=== PATIENT | female | born 1965 | race American Indian/Alaskan Native ===

== ENCOUNTER 2017-11-02 08:15 | Outpatient (CLI) | payer BC ==
--- NOTE | 2017-11-02 15:03 | Ultrasound Report ---
ULTRASOUND ABDOMEN LIMITED: TECHNIQUE: Transabdominal ultrasound with color Doppler interrogation. HISTORY: Chronic right upper quadrant pain. COMPARISON: none. FINDINGS: LIVER: Normal. BILIARY SYSTEM: There is a small amount of non-shadowing debris in the gallbladder consistent with sludge. No evidence for shadowing gallstones. The gallbladder is normal size, contour and wall thickness. No pericholecystic fluid. PANCREAS: Normal. RIGHT KIDNEY: Normal. PROXIMAL AORTA: Normal. ASCITES: None. IMPRESSION: Small amount of sludge in the gallbladder. No evidence for acute cholecystitis.
== END 2017-11-02 08:16 | disposition home or self-care (01) ==
LOC: US 08:15
PROVIDERS: ATTEND Internal Medicine
DX: R10.11 Right upper quadrant pain (principal); Z88.0 Allergy status to penicillin
CPT/HCPCS: 76705

== ENCOUNTER 2017-11-03 11:16 | Outpatient (CLI) | payer BC ==
--- NOTE | 2017-11-03 15:33 | Mammography Report ---
Screening mammogram: Routine imaging demonstrates an intermediate density fibroglandular pattern with a generally symmetric distribution. There is an asymmetry which is partially circumscribed in the upper outer right breast. The breast pattern bilaterally otherwise contains a couple small nodules but no significant findings. No calcifications. CAD used. Impression: Right asymmetry. Recommendation: Prior exams are been requested before final recommendation. BI-RADS CATEGORY: 0 = Needs additional imaging evaluation ACR BI-RADS MAMMOGRAPHIC CODES: 0 = Needs additional imaging evaluation; 1 = Negative; 2 = Benign; 3 = Probably benign; 4 = Suspicious; 5 = Malignant; 6 = Known biopsy-proven malignancy COMMENT: 1. Dense breast tissue, i.e., adenosis, fibrocystic changes, etc., may obscure an underlying neoplasm. 2. Approximately 10% of cancers are not detected with mammography. 3. A negative mammography report should not delay biopsy if a clinically suspicious mass is present.
== END 2017-11-03 11:17 | disposition home or self-care (01) ==
LOC: SPVWC 11:16
PROVIDERS: ATTEND Internal Medicine
DX: Z12.31 Encounter for screening mammogram for malignant neoplasm of breast (principal); Z88.0 Allergy status to penicillin
CPT/HCPCS: 77067

== ENCOUNTER 2017-12-01 08:48 | Outpatient (CLI) | payer BC ==
[2017-12-01] MEDS ORDERED: KINEVAC IV ONE ×2 (10:01→10:07)
--- NOTE | 2017-12-01 12:26 | Nuclear Medicine Report ---
HEPATOBILIARY SCAN: History: Right upper quadrant pain, gallbladder sludge. Following the injection of the radionuclide, serial scanning was obtained over the right upper quadrant. Initial imaging of the liver demonstrates a relatively normal activity pattern. Progressive concentration of the radionuclide in the bile ducts, with filling of both the gallbladder and small bowel, is identified within a normal time period. The gallbladder ejection fraction measures 87%. The patient reported new pain and more intense cramping during the administration of CCK. IMPRESSION: Normal biliary system. Symptomatology as described.
== END 2017-12-01 08:49 | disposition home or self-care (01) ==
LOC: NM 08:48
PROVIDERS: ATTEND Internal Medicine
DX: K82.8 Other specified diseases of gallbladder (principal); Z88.0 Allergy status to penicillin
CPT/HCPCS: 78227; A9537; J2805

== ENCOUNTER 2018-01-05 09:48 | Outpatient (CLI) | payer BC ==
--- NOTE | 2018-01-05 10:37 | Mammography Report ---
Right mammogram: Recall for right asymmetry. CC and lateral spot compression imaging demonstrates a circumscribed nodule which appears homogeneous. There is no calcification. It measures 1 cm in diameter. Comparison is made to a prior exam which is now available in 2014 demonstrating that it has remained unchanged. Impression: Stable right asymmetry. No suspicious finding. Recommendation: Annual mammogram followup. BI-RADS CATEGORY: 2 = Benign ACR BI-RADS MAMMOGRAPHIC CODES: 0 = Needs additional imaging evaluation; 1 = Negative; 2 = Benign; 3 = Probably benign; 4 = Suspicious; 5 = Malignant; 6 = Known biopsy-proven malignancy COMMENT: 1. Dense breast tissue, i.e., adenosis, fibrocystic changes, etc., may obscure an underlying neoplasm. 2. Approximately 10% of cancers are not detected with mammography. 3. A negative mammography report should not delay biopsy if a clinically suspicious mass is present.
== END 2018-01-05 09:49 | disposition home or self-care (01) ==
LOC: SPVWC 09:48
PROVIDERS: ATTEND Internal Medicine
DX: R92.8 Other abnormal and inconclusive findings on diagnostic imaging of breast (principal)